=== PATIENT | female | born 1940 | race Caucasian/White ===

== ENCOUNTER → 2016-06-20 | Outpatient (CLI) | payer OTHER, MEDICARE | LOC: FIMAGING 10:48 | PROVIDERS: ATTEND Psychiatry & Neurology Neurology | DX: R51 Headache (principal) ==

== ENCOUNTER 2016-08-22 01:31 | Emergency (ER) | payer OTHER, MEDICARE ==
[2016-08-22 01:40] VITALS: RESP 16
--- NOTE | 2016-08-22 01:46 | EDPHY ---
H & P Stated Complaint: CARRANZA, abd pain HPI/ROS: HPI CHIEF COMPLAINT: Abdominal pain HISTORY OF PRESENT ILLNESS: This patient very pleasant 76-year-old female significant past medical history for bipolar disorder, cholecystectomy and chronic migraine headaches, she presents emergency room with abdominal pain she describes as crampy dull ache lower abdomen. It comes in waves. She tells me the pain is present currently is been there since 6:00 a.m.. She states he gets worse after she eats. She does tell me that the pain he is achy lower abdomen at times comes in waves in radiates up to her chest. She denies chest pain or shortness of breath. Denies nausea or vomiting. Denies diarrhea. Tells me that she had normal bowel movement today. No black tarry stool. No fever. She also distally tells me she is having a headache that she chronically has. Denies urinary symptoms or back pain. Past Medical History: Chronic headaches, bipolar disorder Past Surgical History: Cholecystectomy Social History: Lives locally, alone, denies drugs alcohol tobacco products Family History: Noncontributory ROS REVIEW OF SYSTEMS: A comprehensive 10 point review of systems is otherwise negative aside from elements mentioned in the history of present illness. Exam Constitutional triage nursing summary reviewed, vital signs reviewed, awake/ alert. Eyes normal conjunctivae and sclera, EOMI, PERRLA. HENT normal inspection, atraumatic, moist mucus membranes, no epistaxis, neck supple/ no meningismus, no raccoon eyes. Respiratory clear to auscultation bilaterally, normal breath sounds, no respiratory distress, no wheezing. Cardiovascular rate normal, regular rhythm, no murmur, no edema, distal pulses normal. Gastrointestinal soft, mild tenderness palpation lower abdomen periumbilical region , no rebound, no guarding, normal bowel sounds, no distension, no pulsatile mass. Genitourinary no CVA tenderness. Musculoskeletal no midline vertebral tenderness, full range of motion, no calf swelling, no tenderness of extremities, no meningismus, good pulses, neurovascularly intact. Skin pink, warm, & dry, no rash, skin atraumatic. Neurologic awake, alert and oriented x 3, AAOx3, moves all 4 extremities equally, motor intact, sensory intact, CN II-XII intact, normal cerebellar, normal vision, normal speech. Psychiatric normal mood/affect. Heme/Lymph/Immune no lymphadenopathy. Differential diagnosis includes but is not limited to and in no particular order : Bowel obstruction, appendicitis, gallbladder disease, diverticulitis, colitis , enteritis, perforated viscus, gastritis, GERD, esophagitis, urinary tract infection, pyelonephritis, kidney stones Medical Decision Making: Plan for this patient IV fluid bolus, IV Zofran, for nausea, IV morphine for acute pain control, full hospital monitor, will obtain EKG and troponin do the pain radiating into her chest. Patient will need a CT scan abdomen pelvis with IV contrast to help delineate acute pathology for lower abdominal pain. Check abdominal blood work. Re-evaluate. Re-evaluation: EKG interpretation by me on record in [email or web address] system. Impression time of EKG 1:55 a.m. this is sinus rhythm rate of 72 LVH present. No acute ischemic changes appreciated. Specifically no ST elevation or ST depression. No significant T-wave abnormalities. Similar to previous EKG dated 07/14/2011. CT scan of the abdomen pelvis with IV contrast. The results of the study are negative for acute appendicitis, no colitis, no diverticulitis. Constipation .. The study was read by Dr. Yanez. I viewed the images myself on the PACS system. [id number]: Re-examination at this time patient resting comfortably did review her CT scan and blood work with her. Normal EKG. Normal troponin. Lactic acid less than 1. CT scan of the abdomen pelvis with IV contrast shows constipation but otherwise no acute inflammatory process. However the patient go home on MiraLax. Patient understands return emergency room she develops worsening abdominal pain fever vomiting. Source: Patient - Personal History Current Tetanus/Diphtheria Vaccine: Unsure Current Tetanus Diphtheria and Acellular Pertussis (TDAP): Unsure Tetanus Vaccine Date: <10 YRS - Medical/Surgical History Hx Asthma: No Hx Chronic Respiratory Disease: No Hx Diabetes: No Hx Cardiac Disease: No Hx Renal Disease: No Hx Cirrhosis: No Hx Alcoholism: No Hx HIV/AIDS: No Hx Splenectomy or Spleen Trauma: No Other PMH: Foot surg, R Knee Replacementx2, chronic CARRANZA, Breast CA,. HTN - Social History Smoking Status: Never smoked Constitutional: Initial Vital Signs Temperature (C) 36.3 C 08/22/16 01:37 Heart Rate 82 08/22/16 01:37 Respiratory Rate 16 08/22/16 01:37 Blood Pressure 185/101 H 08/22/16 01:37 O2 Sat (%) 97 08/22/16 01:37 O2 Delivery Mode Room Air O2 (L/minute) 3 Allergies/Adverse Reactions: aspirin Allergy (Severe, Verified 08/22/16 01:36) MOUTH SORES, RASH atomoxetine HCl [From Strattera] Allergy (Severe, Verified 08/22/16 01:36) INSOMNIA lamotrigine Allergy (Severe, Verified 08/22/16 01:36) RASH / MOUTH SORES quetiapine fumarate [From Seroquel] Allergy (Severe, Verified 08/22/16 01:36) BAD TASTE IN MOUTH cefuroxime Allergy (Intermediate, Verified 08/22/16 01:36) Vomiting doxycycline Allergy (Intermediate, Verified 08/22/16 01:36) NAUSEA/VOMITING propranolol [Propranolol] Allergy (Intermediate, Verified 08/22/16 01:36) CHEST PAINS Penicillins Allergy (Unknown, Verified 08/22/16 01:36) Sulfa (Sulfonamide Antibiotics) Allergy (Unknown, Verified 08/22/16 01:36) Home Medications: Medication Instructions Recorded Gabapentin [Neurontin 400 MG (RX)] 400 mg PO 08,12,21 07/12/11 Gabapentin [Neurontin 400 MG (RX)] 800 mg PO 17 07/12/11 Pharmacy Completed 07/12/11 07/12/11 Simvastatin [Zocor 10 mg (RX)] 10 mg PO DAILY18 07/12/11 amLODIPine BESYLATE [Norvasc (RX)] 5 mg PO DAILY 07/12/11 busPIRone [Buspar (RX)] 10 mg PO BID 07/12/11 clonazePAM [Klonopin (RX)] 0.25 mg PO BID PRN 07/12/11 clonazePAM [Klonopin (RX)] 0.5 mg PO HS 07/12/11 Polyethylene Glycol 3350 [Miralax 17 gm PO DAILY #2 pkt 08/22/16 17 gm (*)] Medical Decision Making - Data Points Laboratory Results: Laboratory Results 08/22/16 01:50 08/22/16 01:50 08/22/16 08/22/16 08/22/16 02:00 01:50 01:50 WBC RBC Hgb Hct MCV MCH MCHC RDW Plt Count MPV Neut % (Auto) Lymph % (Auto) [place] % (Auto) Eos % (Auto) Baso % (Auto) Nucleat RBC Rel Count Absolute Neuts (auto) Absolute Lymphs (auto) Absolute Monos (auto) Absolute Eos (auto) Absolute Basos (auto) Absolute Nucleated RBC Immature Gran % Immature Gran # PT 14.0 SEC SEC (12.0-15.0) INR 1.09 (0.83-1.16) APTT 26.2 SEC SEC (23.0-38.0) VBG Lactic Acid Sodium 142 mEq/L mEq/L (134-144) Potassium 3.8 mEq/L mEq/L (3.5-5.2) Chloride 106 mEq/L mEq/L (97-110) Carbon Dioxide 25 mEq/l mEq/l (22-31) Anion Gap 11 mEq/L mEq/L (8-16) BUN 10 mg/dL mg/dL (7-23) Creatinine 0.8 mg/dL mg/dL (0.6-1.0) Estimated GFR > 60 Glucose 100 mg/dL mg/dL (70-100) Calcium 9.5 mg/dL mg/dL (8.5-10.4) Total Bilirubin 0.8 mg/dL mg/dL (0.1-1.4) Conjugated Bilirubin 0.5 mg/dL mg/dL (0.0-0.5) Unconjugated Bilirubin 0.3 mg/dL mg/dL (0.0-1.1) AST 21 IU/L IU/L (14-46) ALT 27 IU/L IU/L (9-52) Alkaline Phosphatase 66 IU/L IU/L (38-126) Troponin I < 0.012 ng/mL ng/mL (0-0.034) Total Protein 7.2 g/dL g/dL (6.3-8.2) Albumin 4.4 g/dL g/dL (3.5-5.0) Lipase 94.0 IU/L IU/L (23-300) Urine Color YELLOW Urine Appearance CLEAR Urine pH 7.0 (5.0-7.5) Ur Specific [place] 1.004 (1.002-1.030) Urine Protein NEGATIVE (NEGATIVE) Urine Ketones NEGATIVE (NEGATIVE) Urine Blood NEGATIVE (NEGATIVE) Urine Nitrate NEGATIVE (NEGATIVE) Urine Bilirubin NEGATIVE (NEGATIVE) Urine Urobilinogen NEGATIVE EU EU (0.2-1.0) Ur Leukocyte Esterase NEGATIVE (NEGATIVE) Urine Glucose NEGATIVE (NEGATIVE) 08/22/16 08/22/16 01:50 01:50 WBC 7.61 10^3/uL 10^3/uL (3.80-9.50) RBC 5.06 10^6/uL 10^6/uL (4.18-5.33) Hgb 14.8 g/dL g/dL (12.6-16.3) Hct 45.3 % % (38.0-47.0) MCV 89.5 fL fL (81.5-99.8) MCH 29.2 pg pg (27.9-34.1) MCHC 32.7 g/dL g/dL (32.4-36.7) RDW 13.3 % % (11.5-15.2) Plt Count 320 10^3/uL 10^3/uL (150-400) MPV 10.1 fL fL (8.7-11.7) Neut % (Auto) 59.4 % % (39.3-74.2) Lymph % (Auto) 27.3 % % (15.0-45.0) Moca % (Auto) 8.8 % % (4.5-13.0) Eos % (Auto) 3.4 % % (0.6-7.6) Baso % (Auto) 0.8 % % (0.3-1.7) Nucleat RBC Rel Count 0.0 % % (0.0-0.2) Absolute Neuts (auto) 4.52 10^3/uL 10^3/uL (1.70-6.50) Absolute Lymphs (auto) 2.08 10^3/uL 10^3/uL (1.00-3.00) Absolute Monos (auto) 0.67 10^3/uL 10^3/uL (0.30-0.80) Absolute Eos (auto) 0.26 10^3/uL 10^3/uL (0.03-0.40) Absolute Basos (auto) 0.06 10^3/uL 10^3/uL (0.02-0.10) Absolute Nucleated RBC 0.00 10^3/uL 10^3/uL (0-0.01) Immature Gran % 0.3 % % (0.0-1.1) Immature Gran # 0.02 10^3/uL 10^3/uL (0.00-0.10) PT INR APTT VBG Lactic Acid 0.9 mmol/L mmol/L (0.7-2.1) Sodium Potassium Chloride Carbon Dioxide Anion Gap BUN Creatinine Estimated GFR Glucose Calcium Total Bilirubin Conjugated Bilirubin Unconjugated Bilirubin AST ALT Alkaline Phosphatase Troponin I Total Protein Albumin Lipase Urine Color Urine Appearance Urine pH Ur Specific [place] Urine Protein Urine Ketones Urine Blood Urine Nitrate Urine Bilirubin Urine Urobilinogen Ur Leukocyte Esterase Urine Glucose Medications Given: Discontinued Medications Sodium Chloride (Ns) 1,000 mls @ 0 mls/hr IV ONCE ONE PRN Reason: Wide Open Stop: 08/22/16 01:55 Last Admin: 08/22/16 01:59 Dose: 1,000 mls Morphine Sulfate (Morphine) 4 mg IVP EDNOW ONE Stop: 08/22/16 01:55 Last Admin: 08/22/16 02:20 Dose: 4 mg Ondansetron HCl (Zofran) 4 mg IVP EDNOW ONE Stop: 08/22/16 01:55 Last Admin: 08/22/16 02:20 Dose: 4 mg Departure - Departure Disposition: Home, Routine, Self-Care Clinical Impression: Abdominal pain Qualifiers: Abdominal location: generalized Qualified Code(s): R10.84 - Generalized abdominal pain Constipation Qualifiers: Constipation type: unspecified constipation type Qualified Code(s): K59.00 - Constipation, unspecified Condition: Good Instructions: Constipation (ED), Acute Abdominal Pain (ED) Additional Instructions: 1. Recommend that he return emergency room if develops worsening abdominal pain fever vomiting. 2. Recommend to take 2 packs MiraLax today. 3. Your CT scan showed a normal appendix but does show constipation. Referrals: Ghassan Tate MD [Primary Care Provider] - As per Instructions Prescriptions: Polyethylene Glycol 3350 [Miralax 17 gm (*)] 17 gm PO DAILY #2 pkt
[2016-08-22] MEDS ORDERED: ONDANSETRON 4 MG/2 ML VIAL IVP ONE (01:54)
[2016-08-22] MEDS ORDERED: NS 1,000 ML IV ONE (01:54)
--- NOTE | 2016-08-22 01:56 | CPEKG ---
Heart Rate: 72 RR Interval: 833 P-R Interval: 184 QRSD Interval: 86 QT Interval: 396 QTC Interval: 434 P Monson: 50 QRS Monson: -31 T Wave Monson: 35 EKG Severity - ABNORMAL ECG - EKG Impression: SINUS RHYTHM EKG Impression: LEFT AXIS DEVIATION EKG Impression: LEFT VENTRICULAR HYPERTROPHY Electronically Signed By: Zaid Magallanes 22-Aug-2016 07:04:35
[2016-08-22] MEDS ORDERED: IOPAMIDOL (ISOVUE-300) 100 ML BTL ONE (02:02)
[2016-08-22 02:07] LABS: % IMMATURE GRANULYOCYTES 0.3 % (0.0-1.1); ABSOLUTE IMMATURE GRANULOCYTES 0.02 10^3/uL (0.00-0.10); ADD DIFF? NO; ADD MORPH? NO; ADD SCAN? NO; ALANINE AMINOTRANSFERASE 27 IU/L (9-52); ALBUMIN 4.4 g/dL (3.5-5.0); ALKALINE PHOSPHATASE 66 IU/L (38-126); ANION GAP 11 mEq/L (8-16); ASPARTATE AMINOTRANSFERASE 21 IU/L (14-46); ATYPICAL LYMPHOCYTE FLAG 10 (0-99); BILIRUBIN,TOTAL 0.8 mg/dL (0.1-1.4); BILIRUBIN-CONJUGATED 0.5 mg/dL (0.0-0.5); BILIRUBIN-UNCONJUGATED 0.3 mg/dL (0.0-1.1); CALCIUM 9.5 mg/dL (8.5-10.4); CARBON DIOXIDE 25 mEq/l (22-31); CHLORIDE 106 mEq/L (97-110); CREATININE 0.8 mg/dL (0.6-1.0); FRAGMENT RBC FLAG 0 (0-99); GLOMERULAR FILTRATION RATE > 60; GLUCOSE 100 mg/dL (70-100); HEMATOCRIT 45.3 % (38.0-47.0); HEMOGLOBIN 14.8 g/dL (12.6-16.3); LEFT SHIFT FLG 0 (0-99); LIPEMIA HEMOLYSIS FLAG 80 (0-99); MEAN CELL HEMOGLOBIN 29.2 pg (27.9-34.1); MEAN CELL HEMOGLOBIN CONCENTR. 32.7 g/dL (32.4-36.7); MEAN CELL VOLUME 89.5 fL (81.5-99.8); MEAN PLATELET VOLUME 10.1 fL (8.7-11.7); PLATELET CLUMPS FLAG 0 (0-99); PLATELET COUNT 320 10^3/uL (150-400); POTASSIUM 3.8 mEq/L (3.5-5.2); RED BLOOD CELL COUNT 5.06 10^6/uL (4.18-5.33); RED CELL DISTRIBUTION WIDTH 13.3 % (11.5-15.2); SODIUM 142 mEq/L (134-144); TOTAL PROTEIN 7.2 g/dL (6.3-8.2)
[2016-08-22 02:09] LABS: INR 1.09 (0.83-1.16)
[2016-08-22 02:10] LABS: APTT 26.2 SEC (23.0-38.0)
[2016-08-22 02:18] LABS: TROPONIN I < 0.012 ng/mL (0-0.034)
[2016-08-22 02:26] LABS: COLOR YELLOW; LEUKOCYTE ESTERASE,URINE NEGATIVE (NEGATIVE); NITRITE,URINE NEGATIVE (NEGATIVE)
[2016-08-22 03:06] VITALS: BP 167/89; PULSE 67; TEMP 97.9; O2SAT 94
== END 2016-08-22 03:03 | disposition home or self-care (01) ==
DX: K59.00 Constipation, unspecified (principal); I10 Essential (primary) hypertension; Z85.3 Personal history of malignant neoplasm of breast; Z90.49 Acquired absence of other specified parts of digestive tract
CPT/HCPCS: 71010; 74177; 93005; 96361; 96374; 96375; 99285; J2405; Q9967

== ENCOUNTER → 2016-11-14 | Outpatient (CLI) | payer OTHER, MEDICARE | LOC: FIMAGING 09:49 | PROVIDERS: ATTEND Internal Medicine Rheumatology | DX: M81.0 Age-related osteoporosis without current pathological fracture (principal) ==

== ENCOUNTER → 2017-05-23 | Outpatient (CLI) | payer OTHER, MEDICARE | LOC: FIMAGING 14:25 | PROVIDERS: ATTEND Surgery | DX: Z12.31 Encounter for screening mammogram for malignant neoplasm of breast (principal); Z85.3 Personal history of malignant neoplasm of breast ==

== ENCOUNTER → 2017-11-28 | Outpatient (CLI) | payer OTHER, MEDICARE | LOC: FIMAGING 14:46 | PROVIDERS: ATTEND Physician Assistant | DX: M25.561 Pain in right knee (principal); Z96.651 Presence of right artificial knee joint ==

== ENCOUNTER → 2017-12-20 | Outpatient (CLI) | payer OTHER, MEDICARE | LOC: FIMAGING 10:29 | PROVIDERS: ATTEND Orthopaedic Surgery | DX: M25.561 Pain in right knee (principal); R93.7 Abnormal findings on diagnostic imaging of other parts of musculoskeletal system; Z96.651 Presence of right artificial knee joint | CPT/HCPCS: 78315; A9503 ==

== ENCOUNTER → 2018-01-23 | Outpatient (CLI) | payer OTHER, MEDICARE | LOC: FIMAGING 17:36 | PROVIDERS: ATTEND Orthopaedic Surgery | DX: M17.12 Unilateral primary osteoarthritis, left knee (principal); M23.222 Derangement of posterior horn of medial meniscus due to old tear or injury, left knee; M22.42 Chondromalacia patellae, left knee; M11.262 Other chondrocalcinosis, left knee ==

== ENCOUNTER → 2018-05-16 | Outpatient (CLI) | payer OTHER, MEDICARE | LOC: FIMAGING 15:51 | PROVIDERS: ATTEND Family Medicine Geriatric Medicine | DX: M25.562 Pain in left knee (principal); M79.605 Pain in left leg ==

== ENCOUNTER → 2018-06-26 | Outpatient (CLI) | payer OTHER, MEDICARE | LOC: FIMAGING 15:33 | PROVIDERS: ATTEND Surgery | DX: Z12.31 Encounter for screening mammogram for malignant neoplasm of breast (principal); Z85.3 Personal history of malignant neoplasm of breast ==